=== PATIENT | male | born 1985 | race Asian ===

== ENCOUNTER 2024-07-09 20:16 | Emergency (ER) | payer OTHER ==
[~2024-07-09] VITALS: Ht 182.9 cm; Wt 113.4 kg
[2024-07-09 20:37] VITALS: BP_SYST 141; PULSE 60; RESP 18; TEMP 98; O2SAT 97
[2024-07-09] MEDS ORDERED: TRAM50TA2 PO (22:17)
[2024-07-09] MEDS ORDERED: ONDA-8 TL (22:17)
[2024-07-09] MEDS ORDERED: IBUP-1969 PO (22:17)
[2024-07-09 22:47] VITALS: BP_SYST 129; PULSE 62; RESP 18; TEMP 98; O2SAT 98
[2024-07-09] MEDS: KETOROLAC TROMETHAMINE 60 MG/2 ML VIAL IM ONE (22:52)
== END 2024-07-09 22:40 | disposition home or self-care (01) ==
LOC: SED 20:16
DX: S06.0X0A Concussion without loss of consciousness, initial encounter (principal); W22.8XXA Striking against or struck by other objects, initial encounter; Y93.89 Activity, other specified; Y92.89 Other specified places as the place of occurrence of the external cause; Y99.8 Other external cause status
CPT/HCPCS: 70450-TC; 99284; J1885